=== PATIENT | male | born 1965 | race Caucasian/White ===

== ENCOUNTER 2023-04-18 07:51 | Outpatient (RCR) | payer OTHER, SELFPAY ==
--- NOTE | 2023-04-18 08:59 | PTOPEVAL1 ---
Assessment and note entered by JT File, PT Evaluation Information Assessment Status Evaluation Diagnosis neck pain Onset 03/19/21 Subjective Information patient reports he has been having pain in the R neck for about a year. he reports he had a shoulder replacement of the R shoulder prior to beginning having neck pain. he reports he now has nerve like symptoms in the R arm. he reports he has tingling down the R arm, weakness, pain in the R neck, and his fingers turn white when he drives . 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 he reports other than work, he reports difficulty reaching behind the back, sitting causes pain in the neck, and sitting reclined or laying on his back. he reports he is not sleeping due to pain in the R shoulder. patient reports the tingling does not move further down past the R shoulder. however, his R hand finger tips with turn white. Reported Pain Level Pain Score 7: Self Report Assessment PT Clinical Summary mr. chávez is a 57 yo man who presents to skilled PT services for evaluation and treatment of R neck pain. he presents today with decreased cervical rom, weak cervical core strength, pain, and tenderness to palpation surrounding mm's and bony structure of the R side neck. he presents with signs and symptoms of levator and UT mm strain and R side cervical radiculopathy. 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 he would benefit from continued skilled PT to address his objective/functional deficits and progress towards a return to his prior level functional activity performance/ quality of life. Plan of Care Interventions Electrical Stimulation,Hot Pack/Cold Pack,Manual Therapy,Mechanical Traction,Neuro Re-education, Patient/Caregiver Educati,Therapeutic Activities, Therapeutic Exercise,Other Other Interventions dry needling PT Services Indicated Yes Treatment Frequency and 2x weekly for 6 visits Duration These treatments will address the objective and functional deficits as defined above. The patient will be advanced safely and appropriately in order for the patient to progress towards his/her prior level of function. Additional exercises will be introduced and as well as a comprehensive home exercise program upon discharge, if needed, ?to ensure carryover of functional gains achieved in the clinic. This treatmen
--- NOTE | 2023-04-18 08:59 | OPREHPOC ---
Outpatient Therapy Plan of Care This is a Multidisciplinary Plan of Care that may contain components documented by all disciplines (PT, OT, and ST.) PT Problem 1 PT Problem #1 Knowledge Deficit PT Goal 1 Goal 1. independent and compliant with HEP to improve tolerance for continued skilled PT and exercsies Target Visit 3 PT Problem 2 PT Problem #2 Pain PT Goal 1 Goal 1. decrease pain at worst to 2/10 or less to improve sleeping habits and return to prior level functional activities Target Visit 6 PT Problem 3 PT Problem #3 Impaired Range of Motion PT Goal 1 Goal 1. improve arom cervical rotation to 50 degrees or better bilaterally 2. improve arom cervical sidebending to 20 degrees or better to the L Target Visit 6 PT Problem 4 PT Problem #4 Impaired Functional Mobil PT Goal 1 Goal 1. patient to display no R scapular winging 2. quick dash to display less than 25% functional deficits 3. patient to display no pain with palpation surrounding the R side neck, UT, levator 4. patient to sleep through the night 5 days a week 5. patient to lift 50lbs safely from floor to waist with no pain Target Visit 6
--- NOTE | 2023-05-09 09:46 | PCPTNOTE ---
patient had to cancel his PT appointment today. he reports he is busy having to return calls with insurance. he is currently not scheduled for any additional PT visits at this time.
--- NOTE | 2023-05-16 08:16 | OPREHPOC ---
Outpatient Therapy Plan of Care This is a Multidisciplinary Plan of Care that may contain components documented by all disciplines (PT, OT, and ST.) PT Problem 1 PT Problem #1 Knowledge Deficit PT Goal 1 Goal 1. independent and compliant with HEP to improve tolerance for continued skilled PT and exercsies Target Visit 3 Progress Met PT Problem 2 PT Problem #2 Pain PT Goal 1 Goal 1. decrease pain at worst to 2/10 or less to improve sleeping habits and return to prior level functional activities Target Visit 6 Progress Not Met PT Problem 3 PT Problem #3 Impaired Range of Motion PT Goal 1 Goal 1. improve arom cervical rotation to 50 degrees or better bilaterally 2. improve arom cervical sidebending to 20 degrees or better to the L Target Visit 6 Progress Not Met PT Problem 4 PT Problem #4 Impaired Functional Mobil PT Goal 1 Goal 1. patient to display no R scapular winging 2. quick dash to display less than 25% functional deficits 3. patient to display no pain with palpation surrounding the R side neck, UT, levator 4. patient to sleep through the night 5 days a week 5. patient to lift 50lbs safely from floor to waist with no pain Target Visit 6 Progress Not Met
--- NOTE | 2023-05-16 08:17 | PTOPDC ---
Assessment and note entered by JT File, PT Evaluation Information Assessment Status Discharge Diagnosis neck pain Onset 03/19/21 Subjective Information patient reports he feels sore today. he reports he has been helping his son move all weekend. he reports he continues to feel tight in the neck. he reports therapy feels better for a day or so, and then feels tight again in the neck. he reports he is still not sleeping through the night. Reported Pain Level Pain Score 8: Self Report Assessment PT Clinical Summary mr. cháevz presents to skilled PT today with continued tightness and pain in the neck. he has shown improvement in his cervical flexion/ extension rom, and slight improvement in his rotation mobility. however, he continues to get nerve like symptoms in the arm with prlonged flexion. he has met goal for HEP performance as of this date. plan is to DC patient with referral for home traction unit to continue the benefits of traction modality at home. Plan of Care PT Services Indicated Yes
== END 2023-05-16 10:17 | disposition home or self-care (01) ==
LOC: CHSPT 07:51
DX: M54.2 Cervicalgia (principal)
CPT/HCPCS: 97012; 97014; 97110; 97140; 97161; G0283